=== PATIENT | female | born 1995 | race Hispanic/Latino ===

== ENCOUNTER 2016-08-01 10:58 | Inpatient (IN) | payer MEDICAID ==
[2016-08-01] MEDS ORDERED: SUBLIMAZE IV ONE (12:21)
[2016-08-01] MEDS ORDERED: ZOFRAN ONE (12:34)
[2016-08-01 12:38] LABS: Hemoglobin 9.8 gm/dl (10.1-14.3); Mean Corpuscular HGB Conc 32 % (30-34); Mean Corpuscular Volume 70 fl (79-97); Platelet Count 592 K/mm3 (140-440); Red Blood Count 4.43 M/mm3 (3.65-5.03); Red Cell Distribution Width 17.9 % (13.2-15.2); White Blood Count 5.7 K/mm3 (4.5-11.0)
[2016-08-01] MEDS ORDERED: ZOFRAN IV ONE (12:39)
[2016-08-01 12:42] LABS: Anion Gap 22 mmol/L; Blood Urea Nitrogen 8 mg/dL (7-17); Calcium 8.7 mg/dL (8.4-10.2); Carbon Dioxide 20 mmol/L (22-30); Chloride 104.5 mmol/L (98-107); Glucose 102 mg/dL (65-100); INR 1.04 (0.87-1.13); Partial Thromboplastin Time 30.9 Sec. (24.2-36.6); Potassium 4.1 mmol/L (3.6-5.0); Sodium 142 mmol/L (137-145)
[2016-08-01 12:43] LABS: Mean Corpuscular Hemoglobin 22 pg (28-32)
--- NOTE | 2016-08-01 13:04 | XRay Report ---
Single view chest: History: Chest pain. Findings: Heart size is upper limit of normal. Trachea is midline. No consolidation, pneumothorax or pleural effusion. Impression: No acute cardiopulmonary findings.
[2016-08-01] MEDS ORDERED: NACL ONE (13:17)
--- NOTE | 2016-08-01 13:30 | Emergency Department Report ---
HPI - General Chief Complaint: Chest Pain Time Seen by Provider: 08/01/16 11:56 - HPI HPI: The patient is 20-year-old female with a reported history of PEs, who presents for evaluation of chest pain. The patient reports chest pain for the past 1-2 hrs, constant since onset, bilateral, 10/10 in severity, sharp in quality. The patient denies fever, trauma to the chest wall, syncope, cough, hemoptysis, unilateral leg swelling, oral contraceptive use, recent immobilization, recent cancer. She states that she is on Lovenox. ED Past Medical Hx - Past Medical History Previous Medical History?: Yes Hx Diabetes: Yes (Type II) Hx Pulmonary Embolism: Yes - Surgical History Past Surgical History?: Yes Additional Surgical History: chest - PE - Social History Smoking Status: Never Smoker Substance Use Type: None ED Review of Systems ROS: Stated complaint: CHEST PAIN Other details as noted in HPI Constitutional: denies: fever ENT: denies: throat or neck pain Respiratory: denies: cough, shortness of breath Cardiovascular: reports chest pain Endocrine: denies unexplained weight loss or gain Gastrointestinal: denies: abdominal pain, nausea Genitourinary: denies: dysuria Musculoskeletal: denies: leg swelling Skin: denies: rash Neurological: denies: headache Hematological/Lymphatic: denies: easy bleeding or easy bruising Psych: denies sadness or hopelessness Physical Exam - Physical Exam Vital Signs: Vital Signs 08/01/16 08/01/16 08/01/16 11:22 11:30 11:33 Temperature 99.4 F Pulse Rate 98 H 99 H Respiratory 11 L Rate Blood Pressure 117/69 117/69 O2 Sat by Pulse 100 97 97 Oximetry 08/01/16 08/01/16 08/01/16 11:40 11:50 12:00 Temperature Pulse Rate 96 H 107 H 101 H Respiratory 9 L 22 21 Rate Blood Pressure 117/69 117/69 117/69 O2 Sat by Pulse 97 98 98 Oximetry 08/01/16 08/01/16 12:10 12:40 Temperature Pulse Rate 95 H Respiratory 17 17 Rate Blood Pressure 118/72 O2 Sat by Pulse 100 100 Oximetry Physical Exam: General: well-nourished, well-developed, no acute distress, morbidly obese Head: Normocephalic, atraumatic Eyes: normal sclera ENT: Mucous membranes are pink and moist Neck: trachea midline, neck supple, No neck stiffness, no cervical adenopathy Respiratory: Breath sounds equal bilaterally, no wheezing, rales, or rhonchi Cardio: S1 and S2 present, no murmurs, rubs, gallops, capillary refill is brisk Abdomen: Normoactive bowel sounds, soft abdomen, no rigidity, no guarding or rebound tenderness Chest WALL/Back: No tenderness to palpation of the chest wall, no CVA tenderness with percussion Musc: No pitting edema Skin: No rash Neuro: no facial drooping, normal speech Psych: flat affect ED Course Vital Signs 08/01/16 08/01/16 08/01/16 11:22 11:30 11:33 Temperature 99.4 F Pulse Rate 98 H 99 H Respiratory 11 L Rate Blood Pressure 117/69 117/69 O2 Sat by Pulse 100 97 97 Oximetry 08/01/16 08/01/16 08/01/16 11:40 11:50 12:00 Temperature Pulse Rate 96 H 107 H 101 H Respiratory 9 L 22 21 Rate Blood Pressure 117/69 117/69 117/69 O2 Sat by Pulse 97 98 98 Oximetry 08/01/16 08/01/16 12:10 12:40 Temperature Pulse Rate 95 H Respiratory 17 17 Rate Blood Pressure 118/72 O2 Sat by Pulse 100 100 Oximetry ED Medical Decision Making - Lab Data Result diagrams: 08/01/16 11:57 08/01/16 11:57 - Medical Decision Making The patient was seen and examined by myself. The patient is placed on a shirt closer and continuous pulse ox. On initial evaluation, the patient was found to be in no distress. Evaluation orders were placed. The patient is given IV fentanyl for pain. EKG exhibited normal sinus rhythm and rate, normal axis, no right heart strain, overall EKG is unremarkable. X-ray of the chest is negative for acute cardiopulmonary disease process. Lab results are not revealing including normal troponin level, BNP, normal d- dimer level, and negative preg test. CT angiogram of the chest reveals bilateral PEs. Medical records from [facility] in [facility] and from [facility] are requested. The patient is given Lovenox. The on- call hospitalist service was contacted. They agreed to admit the patient for further treatment and close monitoring. The ED admit order was placed. The patient was admitted in guarded condition. Critical care attestation.: If time is entered above; I have spent that time in minutes in the direct care of this critically ill patient, excluding procedure time. ED Disposition Clinical Impression: Acute chest pain Pulmonary embolism Qualifiers: Pulmonary embolism type: saddle Chronicity: acute Acute cor pulmonale presence : without acute cor pulmonale Qualified Code(s): I26.92 - Saddle embolus of pulmonary artery without acute cor pulmonale Disposition: DISCHARGED TO HOME OR SELFCARE Is pt being admited?: Yes Condition: Stable Instructions: Chest Pain (ED) Referrals: PRIMARY CARE, [Primary Care Provider] - 3-5 Days Time of Disposition: 14:16
--- NOTE | 2016-08-01 14:15 | Cat Scan Report ---
FINAL REPORT PROCEDURE: CT ANGIO CHEST TECHNIQUE: Computerized tomographic angiography of the chest was performed after the IV injection of iodinated nonionic contrast including image processing. The image data was postprocessed using 2-dimensional multiplanar reformatted (MPR) and 3-dimensional (MIP and/or volume rendered) techniques. HISTORY: chest pain, dx bilat PEs 1 wk ago, hx chronic PEs COMPARISON: No prior studies are available for comparison. FINDINGS: Mild hypoventilatory changes are seen at the lung bases. No pneumothorax or pleural effusion is seen. Small hiatus hernia is seen. Mild cardiomegaly is seen without pulmonary venous congestion. Likely reactive mediastinal lymph nodes are seen. Thoracic aorta is normal in size without evidence of dissection. Pulmonary embolus is seen in the right main pulmonary artery where it is partially occlusive. There is extension into a few more distal branches superiorly and inferiorly on the right. On the left there are more distal emboli within 2nd and 3rd order branches supplying the left lingula. IMPRESSION: Moderate to prominent pulmonary emboli are seen bilaterally, right greater than left.
[2016-08-01] MEDS ORDERED: VALIUM IV ONE (14:32)
[2016-08-01] MEDS ORDERED: LOVENOX SUB-Q ONE ×2 (15:23→18:00)
[2016-08-01] MEDS ORDERED: MORPHINE ONE (15:40)
[2016-08-01] MEDS ORDERED: D50W (25GM) IV PRN (15:49)
[2016-08-01] MEDS ORDERED: ZOFRAN IV PRN (15:49)
[2016-08-01] MEDS ORDERED: DULCOLAX PR PRN (15:49)
[2016-08-01] MEDS ORDERED: MILK OF MAGNESIA PO PRN (15:49)
[2016-08-01] MEDS ORDERED: TYLENOL PO PRN (15:49)
[2016-08-01] MEDS ORDERED: ATIVAN IV PRN (15:53)
[2016-08-01] MEDS: MORPHINE IV PRN ×2 (16:00→22:28)
--- NOTE | 2016-08-01 16:00 | History and Physical Report ---
History of Present Illness Date of examination: 08/01/16 Date of admission: 08/01/2016 Chief complaint: Redness of breath History of present illness: Patient 20-year-old female with a history of obesity, diabetes, pulmonary embolism. Presents this admission with shortness of breath dyspnea on exertion. Patient states she just could not breathe right. Patient was aware of the symptoms of pulmonary embolism because she's had them twice before. Patient's very poor historian secondary to mental illness unspecified. Patient initial pulmonary embolism was at [place] in which she was treated with Coumadin and gave her a rash. The majority of history was taken from the mother. Coumadin gave her a rash she was changed to Xarelto. Patient had a clot despite being on Xarelto therefore was placed on Lovenox daily. Patient recently moved in with her brother and mother states that there is a question of compliance and she is sure the patient has not been taken her Lovenox. Mother states that when she was on Lovenox pt she did not have any clots or PE. Pt mother states she has had hypercoag work up in the past but they do not know the results. She currently hematemesis stable us complain of some chest discomfort and pain. Treated with morphine. Past History Past Medical History: diabetes, GERD. denies: acute PA, atrial fib, arrhythmia , anemia, arthritis, CAD, cancer, COPD, dialysis, DVT, ESRD, heart failure, hepatitis, HIV/AIDS, hyperthyroidism, hypertension, hyperlipidemia, hypothyroidism, liver disease, migraines, PVD, pulmonary embolism, renal failure , stroke, sarcoidosis Past Surgical History: No surgical history Social history: no significant social history, other (lives with brother noncompliance with medication.). denies: smoking, alcohol abuse, prescription drug abuse, IV drug use Family history: no significant family history Medications and Allergies Allergies Allergy/AdvReac Type Severity Reaction Status Date / Time amoxicillin Allergy Rash Verified 08/01/16 11:38 warfarin sodium Allergy Rash Verified 08/01/16 11:38 [From Coumadin] Home Medications Medication Instructions Recorded Confirmed Last Taken Type Enoxaparin [Lovenox] 150 mg SQ QDAY 08/01/16 08/01/16 07/31/16 History metFORMIN 500 mg PO DAILY 08/01/16 08/01/16 Unknown History Active Meds: Active Medications Enoxaparin Sodium (Lovenox) 150 mg SUB-Q QDAY OUSMANE Stop: 08/06/16 23:59 Review of Systems Constitutional: no weight loss, no weight gain, no fever, no chills, no sweats, no anorexia, no fatigue, no weakness, no malaise, no daytime sleepiness, no other Ears, nose, mouth and throat: no ear pain, no ear discharge, no tinnitis, no decreased hearing, no sinus pressure, no bleeding gums, no mouth pain, no dysphagia, no hoarseness, no swelling in mouth, no swelling in throat, no voice changes, no headache, no neck fullness/pressure Cardiovascular: shortness of breath, paroxysmal nocturnal dyspnea, no chest pain , no orthopnea, no palpitations, no rapid/irregular heart beat, no edema, no syncope, no lightheadedness, no claudication, no phlebitis, no high blood pressure, no leg edema, no decreased exercise tolerance Respiratory: cough, shortness of breath, dyspnea on exertion, pain on inspiration, no cough with sputum, no excessive sputum, no hemoptysis, no congestion, no wheezing, no pleurisy, no pain, no snoring, no sleep apnea, no respiratory infections, no home oxygen Gastrointestinal: no abdominal pain, no vomiting, no diarrhea, no constipation, no BRBPR, no melena, no excessive gas, no jaundice, no dyspepsia/bloating, no early satiety Genitourinary Female: no dyspareunia, no pelvic pain, no menorrhagia, no urinary frequency, no stress incontinence, no incomplete emptying Musculoskeletal: no shooting arm pain, no low back pain, no leg numbness/ tingling, no morning stiffness, no muscle weakness, no muscle cramps, no fractures, no prior amputations, no arthritis Integumentary: no rash, no redness, no sores, no jaundice, no growths, no lesions Neurological: no weakness, no numbness, no tingling, no migraines, no memory loss, no double vision, no paralysis Psychiatric: anxiety, no memory loss, no sleep disturbances, no insomnia, no hypersomnia, no change in appetite, no change in libido, no suicidal ideation, no disorientation, no hallucinations, no paranoia Endocrine: no cold intolerance, no excessive thirst, no excessive sweating, no flushing, no increase in ring/shoe/hat size, no deepening of the voice, no thyroid mass, no high blood sugars, no low blood sugars Hematologic/Lymphatic: no easy bruising, no easy bleeding, no lymphadenopathy, no lymphedema, no other Allergic/Immunologic: no persistent infections, no anaphylaxis, no gluten intolerance, no seasonal allergies Exam - Constitutional Vitals: Temp Pulse Resp BP Pulse Ox 99.4 F 95 H 17 118/72 100 08/01/16 11:33 08/01/16 12:10 08/01/16 12:40 08/01/16 12:10 08/01/16 12:40 General appearance: Present: no acute distress, mild distress, well-nourished - EENT Eyes: Present: PERRL ENT: hearing intact, clear oral mucosa - Neck Neck: Present: supple, normal ROM - Respiratory Respiratory: bilateral: diminished - Cardiovascular Rhythm: regular Heart Sounds: Present: S1 & S2, gallop - Extremities Extremities: pulses symmetrical, No edema Peripheral Pulses: within normal limits - Abdominal General gastrointestinal: Present: soft, non-tender, non-distended, normal bowel sounds - Integumentary Integumentary: Present: clear, warm, dry - Musculoskeletal Musculoskeletal: gait normal, strength equal bilaterally - Psychiatric Psychiatric: other (health disorder unspecified) - Neurologic Neurologic: CNII-XII intact, moves all extremities Results - Labs CBC & Chem 7: 08/01/16 11:57 08/01/16 11:57 Labs: Laboratory Last Values WBC 5.7 K/mm3 (4.5-11.0) 08/01/16 11:57 RBC 4.43 M/mm3 (3.65-5.03) 08/01/16 11:57 Hgb 9.8 gm/dl (10.1-14.3) L 08/01/16 11:57 Hct 31.0 % (30.3-42.9) 08/01/16 11:57 MCV 70 fl (79-97) L 08/01/16 11:57 MCH 22 pg (28-32) L 08/01/16 11:57 MCHC 32 % (30-34) 08/01/16 11:57 RDW 17.9 % (13.2-15.2) H 08/01/16 11:57 Plt Count 592 K/mm3 (140-440) H 08/01/16 11:57 PT 13.5 Sec. (12.2-14.9) 08/01/16 11:57 INR 1.04 (0.87-1.13) 08/01/16 11:57 APTT 30.9 Sec. (24.2-36.6) 08/01/16 11:57 D-Dimer 197.52 ng/mlDDU (0-234) 08/01/16 11:57 Sodium 142 mmol/L (137-145) 08/01/16 11:57 Potassium 4.1 mmol/L (3.6-5.0) 08/01/16 11:57 Chloride 104.5 mmol/L (98-107) 08/01/16 11:57 Carbon Dioxide 20 mmol/L (22-30) L 08/01/16 11:57 Anion Gap 22 mmol/L 08/01/16 11:57 BUN 8 mg/dL (7-17) 08/01/16 11:57 Creatinine 0.5 mg/dL (0.7-1.2) L 08/01/16 11:57 Estimated GFR > 60 ml/min 08/01/16 11:57 BUN/Creatinine Ratio 16.00 % 08/01/16 11:57 Glucose 102 mg/dL (65-100) H 08/01/16 11:57 Calcium 8.7 mg/dL (8.4-10.2) 08/01/16 11:57 Troponin T < 0.010 ng/mL (0.00-0.029) 08/01/16 12:45 NT-Pro-B Natriuret Pep 18.66 pg/mL (0-450) 08/01/16 12:45 HCG, Qual Negative (Negative) 08/01/16 11:57 - Imaging and Cardiology EKG: image reviewed CT scan - chest: report reviewed Assessment and Plan Advance Directives: Yes VTE prophylaxis?: Chemical - Patient Problems (1) Diabetes 1.5, managed as type 2 Current Visit: Yes Status: Acute Plan to address problem: Sure what type 2 diabetes mellitus we'll hold metformin for now treat with sliding-scale insulin. Titrate accordingly. Patient Accu-Chek stable. (2) Acute chest pain Current Visit: Yes Status: Acute Plan to address problem: Secondary to pulmonary embolism. (3) Pulmonary embolism Current Visit: Yes Status: Acute Qualifiers: Pulmonary embolism type: saddle Chronicity: acute Acute cor pulmonale presence: without acute cor pulmonale Qualified Code(s): I26.92 - Saddle embolus of pulmonary artery without acute cor pulmonale Plan to address problem: Patient with standing history of pulmonary embolism. Has had another PE this time secondary to noncompliance with Lovenox. We'll bring patient and placed on current dose of Lovenox. Unable to treat with Coumadin and failed treatment with Xarelto. At present only option is Lovenox. Patient has had filter placed already. We have asked for old records from [facility] which she'll be at a gastritis with some treatment and what treatment options she's already had. Patient appears to have already had IVC filter placed. We'll confirm this with follow-up studies from [place]. May benefit from vascular consult
[2016-08-01] MEDS ORDERED: DUONEB 0.5 MG-3 MG/3 ML SOLN IH SCH (20:00)
[2016-08-01] MEDS: PEPCID IV SCH (22:27)
[2016-08-02 06:11] LABS: Anion Gap 17 mmol/L; Blood Urea Nitrogen 10 mg/dL (7-17); Calcium 8.5 mg/dL (8.4-10.2); Carbon Dioxide 22 mmol/L (22-30); Chloride 101.6 mmol/L (98-107); Glucose 98 mg/dL (65-100); Potassium 3.8 mmol/L (3.6-5.0); Sodium 137 mmol/L (137-145)
[2016-08-02] MEDS: PEPCID IV SCH ×2 (10:45→21:28)
[2016-08-02] MEDS: LOVENOX SUB-Q SCH (10:45)
[2016-08-02] MEDS: MORPHINE IV PRN ×2 (12:00→17:45)
--- NOTE | 2016-08-02 15:45 | Progress Note ---
Assessment and Plan - Patient Problems (1) Pulmonary embolism Current Visit: Yes Status: Acute Qualifiers: Pulmonary embolism type: saddle Chronicity: acute Acute cor pulmonale presence: without acute cor pulmonale Qualified Code(s): I26.92 - Saddle embolus of pulmonary artery without acute cor pulmonale Plan to address problem: Therapeutic lovenox, supportive care, D/C Planning (2) Acute chest pain Current Visit: Yes Status: Acute Plan to address problem: Atypical chest pain secondary to PE (3) Diabetes 1.5, managed as type 2 Current Visit: Yes Status: Acute Plan to address problem: ADA diet, insulin, accu check (4) DVT prophylaxis Current Visit: Yes Status: Acute History Interval history: Pt resting in bed, Pt denies pain, no reported nursing events. Hospitalist Physical - Constitutional Vitals: Temp Pulse Resp BP Pulse Ox 97.5 F L 81 20 99/61 95 08/02/16 07:35 08/02/16 10:00 08/02/16 07:35 08/02/16 07:35 08/02/16 07:35 General appearance: Present: no acute distress, mild distress, obese - EENT Eyes: Present: PERRL, EOM intact ENT: hearing intact - Neck Neck: Present: supple - Respiratory Respiratory effort: normal Respiratory: bilateral: diminished - Cardiovascular Rhythm: regular - Extremities Extremities: no ischemia Peripheral Pulses: within normal limits - Abdominal General gastrointestinal: soft, non-tender, non-distended - Integumentary Integumentary: Present: clear, dry - Psychiatric Psychiatric: appropriate mood/affect, cooperative - Neurologic Neurologic: CNII-XII intact Results - Labs CBC & Chem 7: 08/01/16 11:57 08/02/16 05:35 Labs: Laboratory Last Values WBC 5.7 K/mm3 (4.5-11.0) 08/01/16 11:57 RBC 4.43 M/mm3 (3.65-5.03) 08/01/16 11:57 Hgb 9.8 gm/dl (10.1-14.3) L 08/01/16 11:57 Hct 31.0 % (30.3-42.9) 08/01/16 11:57 MCV 70 fl (79-97) L 08/01/16 11:57 MCH 22 pg (28-32) L 08/01/16 11:57 MCHC 32 % (30-34) 08/01/16 11:57 RDW 17.9 % (13.2-15.2) H 08/01/16 11:57 Plt Count 592 K/mm3 (140-440) H 08/01/16 11:57 PT 13.5 Sec. (12.2-14.9) 08/01/16 11:57 INR 1.04 (0.87-1.13) 08/01/16 11:57 APTT 30.9 Sec. (24.2-36.6) 08/01/16 11:57 D-Dimer 197.52 ng/mlDDU (0-234) 08/01/16 11:57 Sodium 137 mmol/L (137-145) 08/02/16 05:35 Potassium 3.8 mmol/L (3.6-5.0) 08/02/16 05:35 Chloride 101.6 mmol/L (98-107) 08/02/16 05:35 Carbon Dioxide 22 mmol/L (22-30) 08/02/16 05:35 Anion Gap 17 mmol/L 08/02/16 05:35 BUN 10 mg/dL (7-17) 08/02/16 05:35 Creatinine 0.5 mg/dL (0.7-1.2) L 08/02/16 05:35 Estimated GFR > 60 ml/min 08/02/16 05:35 BUN/Creatinine Ratio 20.00 % 08/02/16 05:35 Glucose 98 mg/dL (65-100) 08/02/16 05:35 POC Glucose 99 (70-105) 08/02/16 11:49 Hemoglobin A1c 6.0 % (4-6) 08/01/16 11:57 Calcium 8.5 mg/dL (8.4-10.2) 08/02/16 05:35 Troponin T < 0.010 ng/mL (0.00-0.029) 08/01/16 12:45 NT-Pro-B Natriuret Pep 18.66 pg/mL (0-450) 08/01/16 12:45 Triglycerides 65 mg/dL (2-149) 08/01/16 11:57 Cholesterol 103 mg/dL (50-199) 08/01/16 11:57 LDL Cholesterol Direct 51 mg/dL (50-130) 08/01/16 11:57 HDL Cholesterol 39 mg/dL (40-59) L 08/01/16 11:57 Cholesterol/HDL Ratio 2.64 % 08/01/16 11:57 HCG, Qual Negative (Negative) 08/01/16 11:57
[2016-08-03] MEDS: LOVENOX SUB-Q SCH (09:39)
[2016-08-03] MEDS: PEPCID IV SCH ×2 (09:39→23:01)
[2016-08-03] MEDS: MORPHINE IV PRN (10:31)
--- NOTE | 2016-08-03 10:40 | Query- Dyspnea ---
Kristie Arzoal Date:_08/03/2016 Medical Geneticist/CDS:_Martin Diaz Phone#: Exercise your independent professional judgment when responding to query. Questions asked do not imply a particular answer is desired or expected. We greatly appreciate your clarification on this issue. Clinical Documentation States: The patient was admitted due to Acute Pulmonary Embolism. "Presents this admission with shortness of breath dyspnea on exertion" (Dr. Lockhart in [facility] on 08/01/2016). "Respiratory: cough, shortness of breath, dyspnea on exertion, pain on inspiration" (Dr. Lockhart in [employer] on 08/01/2016). Pulse 107 Supplemental Oxygen was provided. Please clarify if the patient had any of the following conditions based on the above clinical findings: [ ] Respiratory Failure [ x] Acute [ ] Acute on Chronic [ ] Chronic [ ] Respiratory failure due to trauma [ ] Acute Respiratory Distress Syndrome [ ] Other: [ ] Unable to determine [ ] Comment/Explanation: Present on Admission: [x ] Yes (Y) [ ] Clinically undeterminable (W) [ ] No (N) Please also document response in your Progress Notes and/or Discharge Summary and indicate if the condition was present on admission. IRENE
--- NOTE | 2016-08-03 13:22 | Admit Criteria Form ---
Admission Criteria Documentation: PULMONARY EMBOLISM Clinical Indications for Admission to Inpatient Care (Place 'X' for any and all applicable criteria): Admission is indicated by ANY ONE of the following 1,2,3,4,5 [ ]I. Onset of hypoxia [ ]II. Hemodynamic instability 5 [ ]III. Massive pulmonary embolism (eg, acute embolism causing sustained hypotension, pulselessness, or bradycardia)5 [ ]IV. Need for IV narcotics (eg, to treat dyspnea) [ ]V. Current use of home oxygen therapy [ ]. Active bleeding [ ]VII. Recent surgery [ ]VIII. Active peptic ulcer disease [ ]IX. Documented extensive thrombosis (eg, clot in vena cava or above iliofemoral bifurcation) [ ]X. Embolism while on anticoagulation [ ]XI. 6 [X]XII. Appropriate monitoring and therapy cannot be provided in home or outpatient setting. [ ]XIII. Systemic or catheter-directed thrombolysis 5,7 [ ]XIV. Catheter embolectomy and fragmentation 6 [ ]XV. Vena cava filter placement5 [ ]XVI. Severely diminished cardiopulmonary reserve (eg, cor pulmonale, pulmonary hypertension) [ ]XVII. Severe renal failure (eg, GFR less than 30 mL/min/1.73m2 (0.5 mL/sec/ 1.73m2)) [ ]XVIII.Right ventricular dysfunction (eg, by echocardiogram) 6,11 [ ]XIX. Positive cardiac biomarker (eg, troponin T or I > 0.1 ng/mL (mcg/L), highly sensitive troponin I assay greater than 0.014 ng/mL (mcg/L), BNP or NT proBNP > assay threshold)5,8,9 [ ]XX. Known clotting abn or def (eg, liver disease, antithrombin III, protein C, or protein S abnormality) [ ]XXI. History of heparin-induced thrombocytopenia [ ]XXII. Inpatient admission required rather than observation care (Also use Pulmonary Embolism: Observation Care guideline as appropriate) because of ANY ONE of the following: [ ] a) Significant autoimmune (thrombocytopenia) or coagulopathic reaction occurs in response to anticoagulation [ ] b) Respiratory symptoms (eg, tachypnea, dyspnea) that are severe or persistent [ ] c) Other condition, treatment, or monitoring requiring inpatient admission Extended stay beyond goal length of stay may be needed for 3,28 [ ]a) Hemorrhage or recent surgery [ ]b) Recurrent thromboembolism [ ]c) Persistent hypoxemia [ ]d) Heparin-induced thrombocytopenia The original [facility] [employer] content created by [facility] [email or web address] has been revised. The portions of the content which have been revised are identified through the use of italic text or in bold, and [facility] has neither reviewed nor approved the modified material. All other unmodified content is copyright [facility] [email or web address]. Please see references footnoted in the original [facility] [email or web address] edition 2016 Admission Criteria Met: Yes
--- NOTE | 2016-08-03 17:57 | Progress Note ---
Assessment and Plan - Patient Problems (1) Pulmonary embolism Current Visit: Yes Status: Acute Qualifiers: Pulmonary embolism type: saddle Chronicity: acute Acute cor pulmonale presence: without acute cor pulmonale Qualified Code(s): I26.92 - Saddle embolus of pulmonary artery without acute cor pulmonale Plan to address problem: Therapeutic lovenox, supportive care, D/C Planning (2) Acute chest pain Current Visit: Yes Status: Acute Plan to address problem: Atypical chest pain secondary to PE (3) Diabetes 1.5, managed as type 2 Current Visit: Yes Status: Acute Plan to address problem: ADA diet, insulin, accu check (4) DVT prophylaxis Current Visit: Yes Status: Acute History Interval history: Pt resting in bed, Pt denies pain, no reported nursing events. Hospitalist Physical - Constitutional Vitals: Temp Pulse Resp BP Pulse Ox 98.7 F 77 18 113/70 96 08/03/16 08:38 08/03/16 10:00 08/03/16 08:38 08/03/16 08:38 08/03/16 08:38 General appearance: Present: no acute distress, mild distress, obese - EENT Eyes: Present: PERRL, EOM intact ENT: hearing intact - Neck Neck: Present: supple - Respiratory Respiratory effort: normal Respiratory: bilateral: CTA - Cardiovascular Rhythm: regular Heart Sounds: Present: S1 & S2 - Extremities Extremities: no ischemia Peripheral Pulses: within normal limits - Abdominal General gastrointestinal: soft, non-tender, non-distended - Integumentary Integumentary: Present: clear, dry - Psychiatric Psychiatric: appropriate mood/affect, cooperative - Neurologic Neurologic: CNII-XII intact Results - Labs CBC & Chem 7: 08/01/16 11:57 08/02/16 05:35 Labs: Laboratory Last Values WBC 5.7 K/mm3 (4.5-11.0) 08/01/16 11:57 RBC 4.43 M/mm3 (3.65-5.03) 08/01/16 11:57 Hgb 9.8 gm/dl (10.1-14.3) L 08/01/16 11:57 Hct 31.0 % (30.3-42.9) 08/01/16 11:57 MCV 70 fl (79-97) L 08/01/16 11:57 MCH 22 pg (28-32) L 08/01/16 11:57 MCHC 32 % (30-34) 08/01/16 11:57 RDW 17.9 % (13.2-15.2) H 08/01/16 11:57 Plt Count 592 K/mm3 (140-440) H 08/01/16 11:57 PT 13.5 Sec. (12.2-14.9) 08/01/16 11:57 INR 1.04 (0.87-1.13) 08/01/16 11:57 APTT 30.9 Sec. (24.2-36.6) 08/01/16 11:57 D-Dimer 197.52 ng/mlDDU (0-234) 08/01/16 11:57 Sodium 137 mmol/L (137-145) 08/02/16 05:35 Potassium 3.8 mmol/L (3.6-5.0) 08/02/16 05:35 Chloride 101.6 mmol/L (98-107) 08/02/16 05:35 Carbon Dioxide 22 mmol/L (22-30) 08/02/16 05:35 Anion Gap 17 mmol/L 08/02/16 05:35 BUN 10 mg/dL (7-17) 08/02/16 05:35 Creatinine 0.5 mg/dL (0.7-1.2) L 08/02/16 05:35 Estimated GFR > 60 ml/min 08/02/16 05:35 BUN/Creatinine Ratio 20.00 % 08/02/16 05:35 Glucose 98 mg/dL (65-100) 08/02/16 05:35 POC Glucose 108 (70-105) H 08/03/16 12:22 Hemoglobin A1c 6.0 % (4-6) 08/01/16 11:57 Calcium 8.5 mg/dL (8.4-10.2) 08/02/16 05:35 Troponin T < 0.010 ng/mL (0.00-0.029) 08/01/16 12:45 NT-Pro-B Natriuret Pep 18.66 pg/mL (0-450) 08/01/16 12:45 Triglycerides 65 mg/dL (2-149) 08/01/16 11:57 Cholesterol 103 mg/dL (50-199) 08/01/16 11:57 LDL Cholesterol Direct 51 mg/dL (50-130) 08/01/16 11:57 HDL Cholesterol 39 mg/dL (40-59) L 08/01/16 11:57 Cholesterol/HDL Ratio 2.64 % 08/01/16 11:57 HCG, Qual Negative (Negative) 08/01/16 11:57
[2016-08-04] MEDS: PERCOCET 5/325 PO PRN ×2 (00:58→10:09)
[2016-08-04] MEDS: PEPCID IV SCH ×2 (10:02→22:20)
[2016-08-04] MEDS: LOVENOX SUB-Q SCH ×2 (10:02→22:20)
--- NOTE | 2016-08-04 18:02 | Progress Note ---
Assessment and Plan - Patient Problems (1) Acute chest pain Current Visit: Yes Status: Acute (2) Diabetes 1.5, managed as type 2 Current Visit: Yes Status: Acute Plan to address problem: SSI (3) Pulmonary embolism Current Visit: Yes Status: Acute Qualifiers: Pulmonary embolism type: saddle Chronicity: acute Acute cor pulmonale presence: without acute cor pulmonale Qualified Code(s): I26.92 - Saddle embolus of pulmonary artery without acute cor pulmonale Plan to address problem: On Lovenox 100mg SQ BID History Interval history: patient still complains chest discomfort. Hospitalist Physical - Physical exam Narrative exam: Not in cardiopulmonary distress. The patient is obese. Vital signs as documented. Head exam is unremarkable. No scleral icterus . Neck is without jugular venous distension, thyromegaly, or carotid bruits. Lungs are clear to auscultation. Cardiac exam reveals regular rate and Rhythm. First and second heart sounds normal. No murmurs, rubs or gallops. Abdominal exam reveals normal bowel sounds, no masses, no organomegaly and no aortic enlargement. Extremities are nonedematous and both femoral and pedal pulses are normal. DOOR PULLER: Alert and oriented 3. No focal weakness. - Constitutional Vitals: Temp Pulse Resp BP Pulse Ox 98.3 F 78 18 103/53 99 08/04/16 04:55 08/04/16 16:38 08/04/16 16:38 08/04/16 16:38 08/04/16 16:38 General appearance: Present: no acute distress, mild distress, obese Results - Labs CBC & Chem 7: 08/01/16 11:57 08/02/16 05:35 Labs: Laboratory Last Values WBC 5.7 K/mm3 (4.5-11.0) 08/01/16 11:57 RBC 4.43 M/mm3 (3.65-5.03) 08/01/16 11:57 Hgb 9.8 gm/dl (10.1-14.3) L 08/01/16 11:57 Hct 31.0 % (30.3-42.9) 08/01/16 11:57 MCV 70 fl (79-97) L 08/01/16 11:57 MCH 22 pg (28-32) L 08/01/16 11:57 MCHC 32 % (30-34) 08/01/16 11:57 RDW 17.9 % (13.2-15.2) H 08/01/16 11:57 Plt Count 592 K/mm3 (140-440) H 08/01/16 11:57 PT 13.5 Sec. (12.2-14.9) 08/01/16 11:57 INR 1.04 (0.87-1.13) 08/01/16 11:57 APTT 30.9 Sec. (24.2-36.6) 08/01/16 11:57 D-Dimer 197.52 ng/mlDDU (0-234) 08/01/16 11:57 Sodium 137 mmol/L (137-145) 08/02/16 05:35 Potassium 3.8 mmol/L (3.6-5.0) 08/02/16 05:35 Chloride 101.6 mmol/L (98-107) 08/02/16 05:35 Carbon Dioxide 22 mmol/L (22-30) 08/02/16 05:35 Anion Gap 17 mmol/L 08/02/16 05:35 BUN 10 mg/dL (7-17) 08/02/16 05:35 Creatinine 0.5 mg/dL (0.7-1.2) L 08/02/16 05:35 Estimated GFR > 60 ml/min 08/02/16 05:35 BUN/Creatinine Ratio 20.00 % 08/02/16 05:35 Glucose 98 mg/dL (65-100) 08/02/16 05:35 POC Glucose 112 (70-105) H 08/04/16 16:37 Hemoglobin A1c 6.0 % (4-6) 08/01/16 11:57 Calcium 8.5 mg/dL (8.4-10.2) 08/02/16 05:35 Troponin T < 0.010 ng/mL (0.00-0.029) 08/01/16 12:45 NT-Pro-B Natriuret Pep 18.66 pg/mL (0-450) 08/01/16 12:45 Triglycerides 65 mg/dL (2-149) 08/01/16 11:57 Cholesterol 103 mg/dL (50-199) 08/01/16 11:57 LDL Cholesterol Direct 51 mg/dL (50-130) 08/01/16 11:57 HDL Cholesterol 39 mg/dL (40-59) L 08/01/16 11:57 Cholesterol/HDL Ratio 2.64 % 08/01/16 11:57 HCG, Qual Negative (Negative) 08/01/16 11:57
[2016-08-05 06:46] VITALS: BP 107/58
[2016-08-05 07:41] LABS: Eosinophils % (Auto) 0.8 % (0.0-4.3); Hematocrit 33.8 % (30.3-42.9); Hemoglobin 10.4 gm/dl (10.1-14.3); Mean Corpuscular HGB Conc 31 % (30-34); Platelet Count 598 K/mm3 (140-440); Red Blood Count 4.86 M/mm3 (3.65-5.03); Red Cell Distribution Width 17.6 % (13.2-15.2); White Blood Count 10.4 K/mm3 (4.5-11.0)
[2016-08-05 07:45] LABS: Mean Corpuscular Hemoglobin 21 pg (28-32); Mean Corpuscular Volume 70 fl (79-97)
[2016-08-05 07:52] LABS: Anion Gap 21 mmol/L; BUN/Creatinine Ratio 18.33; Blood Urea Nitrogen 11 mg/dL (7-17); Calcium 9.1 mg/dL (8.4-10.2); Carbon Dioxide 19 mmol/L (22-30); Chloride 96.2 mmol/L (98-107); Glucose 90 mg/dL (65-100); INR 1.07 (0.87-1.13); Sodium 132 mmol/L (137-145)
--- NOTE | 2016-08-05 10:36 | Discharge Summary ---
Providers - Providers Date of Admission: 08/01/16 15:49 Date of discharge: 08/05/16 Attending physician: BJ LEMA MD Primary care physician: [employer]AMINER Hospitalization Reason for admission: PE Condition: Stable Pertinent studies: CTA Hospital course: 20-year-old -[place] female with past medical history significant for pulmonary emboli was taking Lovenox 100 mg twice a day and for the last 1 month Lovenox was changed to 150 mg daily. For the last few days the patient started to shortness of breath and chest pain. CTA showed bilateral pulmonary emboli and patient was admitted to the floor and her lovenox is changed to thrapeutic dose. Shortness of breath and chest pain subsided and discharged home with therapeutic dose of Lovenox. Patient was stable at the time of discharge. Disposition: DISCHARGED TO HOME OR SELFCARE Time spent for discharge: 31 minutes - Discharge Diagnoses (1) Acute chest pain Status: Acute (2) Diabetes 1.5, managed as type 2 Status: Acute (3) Pulmonary embolism Status: Acute Qualifiers: Pulmonary embolism type: saddle Chronicity: acute Acute cor pulmonale presence: without acute cor pulmonale Qualified Code(s): I26.92 - Saddle embolus of pulmonary artery without acute cor pulmonale Core Measure Documentation - Palliative Care Palliative Care/ Comfort Measures: Not Applicable - Core Measures Any of the following diagnoses?: none Exam - Physical Exam Narrative exam: Not in cardiopulmonary distress. The patient is obese. Vital signs as documented. Head exam is unremarkable. No scleral icterus . Neck is without jugular venous distension, thyromegaly, or carotid bruits. Lungs are clear to auscultation. Cardiac exam reveals regular rate and Rhythm. First and second heart sounds normal. No murmurs, rubs or gallops. Abdominal exam reveals normal bowel sounds, no masses, no organomegaly and no aortic enlargement. Extremities are nonedematous and both femoral and pedal pulses are normal. SYSTEMS MGR: Alert and oriented 3. No focal weakness. - Constitutional Vitals: Temp Pulse Resp BP Pulse Ox 98.2 F 79 18 107/58 100 08/05/16 06:45 08/05/16 08:48 08/05/16 06:45 08/05/16 06:45 08/05/16 06:45 Plan Activity: no restrictions Weight Bearing Status: Full Weight Bearing Diet: low cholesterol, diabetic Follow up with: [facility] [Provider Group] - 7 Days PRIMARY CARE, [Primary Care Provider] - 7 Days Prescriptions: oxyCODONE /ACETAMINOPHEN [Percocet 5/325 mg] 1 tab PO Q6H PRN #12 tablet PRN Reason: Pain, Moderate (4-6)
[2016-08-05] MEDS: LOVENOX SUB-Q SCH (10:41)
[2016-08-05] MEDS: PEPCID IV SCH (10:42)
== END 2016-08-05 12:00 | disposition home or self-care (01) | DRG 175 ==
LOC: ED 10:58 → 4A 15:49
PROVIDERS: ADMIT Internal Medicine; ATTEND Internal Medicine
DX: I26.92 Saddle embolus of pulmonary artery without acute cor pulmonale (principal); J96.00 Acute respiratory failure, unspecified whether with hypoxia or hypercapnia; Z68.42 Body mass index [BMI] 45.0-49.9, adult; E11.9 Type 2 diabetes mellitus without complications; K21.9 Gastro-esophageal reflux disease without esophagitis; E66.9 Obesity, unspecified; Z86.711 Personal history of pulmonary embolism; Z91.14 Patient's other noncompliance with medication regimen; Z88.1 Allergy status to other antibiotic agents; Z88.8 Allergy status to other drugs, medicaments and biological substances; Z79.4 Long term (current) use of insulin; Z79.01 Long term (current) use of anticoagulants
CPT/HCPCS: 36415; 71010; 71275; 80048; 80061; 82962; 83036; 83880; 84484; 84703; 85025; 85027; 85379; 85610; 85730; 93005; 93010; 96372; 96374; 96375; J1650; J2270; J2405; J3010; J3360; Q9967